=== PATIENT | male | born 1985 | race Two or more races ===

== ENCOUNTER → 2025-01-15 | Outpatient (CLI) | payer MEDICAID, SELFPAY ==
--- NOTE | 2025-01-15 16:00 | XR_ITS ---
Examination: CT maxillofacial, without intravenous contrast. 2-D sagittal reconstructions. 3-D reconstructions. Date and time of exam:January 15, 2025 1607 hours INDICATIONS: Sinus pressure and pain infection several months CTDI: vol (mGy):9.75 DLP: (mGycm):125 Technique: Multiple axial images of maxillofacial region, 3.0 mm slice thickness. 2-D sagittal and coronal reconstructions. 3-D reconstructions. Low dose protocols were performed. One or more of the following dose reduction techniques were used; automated exposure control, adjustment of the mA and/or KV according to patient size, use of iterative reconstruction technique. Findings: Mild mucosal thickening ethmoid air cells No occlusion ostiomeatal complexes Prominent hypertrophy left inferior nasal turbinate Deviation nasal septum to the right at least 4 mm Prominent mucosal disease in the left nasal airway Mucosal thickening up to 3 mm in the left maxillary antrum Mild fluid in sphenoid air cells IMPRESSION: Chronic ethmoid maxillary antral sinusitis Acute sphenoid sinusitis Prominent hypertrophy left inferior nasal turbinate Prominent mucosal thickening left nasal airway.
== END | disposition home or self-care (01) ==
LOC: CCTX 15:45
PROVIDERS: PCP Physician Assistant; Referring Provider Physician Assistant; Visit Provider Physician Assistant
DX: J32.0 Chronic maxillary sinusitis (principal); J01.30 Acute sphenoidal sinusitis, unspecified; J34.3 Hypertrophy of nasal turbinates; J32.9 Chronic sinusitis, unspecified
CPT/HCPCS: 70486